=== PATIENT | male | born 2000 | race African-American/Black ===

== ENCOUNTER 2022-07-03 14:32 | Emergency (ER) | payer MEDICAID, SELFPAY ==
[2022-07-03 15:47] VITALS: BP 113/72; PULSE 73; RESP 18; TEMP 37; O2SAT 100; BMI 25.8
[2022-07-03 16:42] LABS: PCR FLU A Negative PCR FLU A (Negative); PCR FLU B Negative PCR FLU B (Negative); PCR RSV Negative PCR RSV (Negative)
[2022-07-03 16:56] LABS: SARS PCR* Negative SARS-CoV-2 (Negative)
--- NOTE | 2022-07-03 18:12 | ED_ITS ---
HPI - General Adult General Chief complaint: Cough Stated complaint: Fever Nausea Congestion Cough Time Seen by Provider: 07/03/22 17:52 Source: patient Mode of arrival: ambulatory Limitations: no limitations History of Present Illness HPI narrative: 22-year-old female presents with a one-week history of sore throat, nasal congestion, mild cough. Has had exposures to influenza, COVID, RSV at work and through family. She reports that her symptoms worsened significantly this morning and she had a fever of 102 at home. She denies body aches. Does report mild headache. She noted some eye swelling yesterday, no eye drainage. She states that the cough is productive of yellow we mucus, denies any dyspnea. Denies a history of asthma. She reports that she has been diagnosed with pneumonia multiple times, last was about 3 years ago. She has been told that there would be some lung damage as a result of this. She denies a history of known chronic lung disease however. She Kem all today but has not tried any cough suppressants or other treatments to help with her symptoms. She denies any severe dyspnea. 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 She also reports a history of depression, PTSD and schizophrenia though she is not currently on medications for this. Her only current long-term medication is a Nexplanon for contraception. 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 ROS is notable for the generalized, HEENT and respiratory symptoms as above, otherwise denies times 12 systems. Related Data Home Medications Medication Instructions Recorded Confirmed etonogestrel subdermal 07/03/22 Previous Rx's Medication Instructions Recorded albuterol sulfate 90 mcg/actuation 2 puff inhalation Q4H PRN 07/03/22 aerosol inhaler shortness of breath or wheezing #8.5 grams levofloxacin 500 mg tablet 500 mg PO DAILY #7 tabs 07/03/22 Allergies Allergy/AdvReac Type Severity Reaction Status Date / Time No Known Drug Allergies Allergy Verified 07/03/22 15:46 Exam Const: Vital Signs, click to edit/add: Vital Signs - 24 hr 07/03/22 15:47 Temperature 98.6 F Pulse Rate [Right Pulse Oximeter] 73 Respiratory Rate 18 Blood Pressure [Ri ght Upper Arm] 113/72 Pulse Oximetry 100 Oxygen Delivery Me thod Room Air Documenting provider has reviewed patient's vital signs: yes General appearance: cooperative, comfortable and well kempt HENMT: Common normals: normocephalic and TM's normal bilaterally Head and scalp: normocephalic Tympanic membrane: TM's normal bilaterally Other: Nose with mild congestion, clear mucus. Oropharynx with mild postnasal drip but moist mucosa, lips are acyanotic with no redness to the pharynx. Eye: Common normals: conjunctivae normal and no scleral icterus Conjunctiva: conjunctiva(e) normal Neck & C-Spine: Common normals: full ROM Other: Mild anterior cervical and submandibular lymphadenopathy with normal range of motion. No meningeal signs Resp: Common normals: normal respiratory effort and no use of accessory muscles Other: Coarse crackles right lateral mid lung field. No wheeze, left side normal. Cardio: Common normals: regular rate, regular rhythm, S1 normal heart sound, S2 normal heart sound, no murmurs and peripheral pulses 2+ throughout Rate: regular rate Rhythm: regular rhythm Heart sounds: S1 normal and S2 normal Peripheral pulses: pulses 2+ throughout Extremity: Common normals: normal to inspection, normal capillary refill and no clubbing, cyanosis or edema Neuro: Speech: speech normal Motor exam: no movement abnormalities noted Psych: Appearance: well kempt Attitude: calm and engaged Insight: insight good Judgement: judgment good Skin: Common normals: no rashes or lesions noted General skin exam: no rashes or lesions noted Course Vital Signs Vital signs: Initial Vital Signs Temperature 98.6 F 07/03/22 15:47 Temperature Source Temporal Artery Scan 07/03/22 15:47 Pulse Rate 73 07/03/22 15:47 Respiratory Rate 18 07/03/22 15:47 Blood Pressure 113/72 07/03/22 15:47 Blood Pressure Mean 85 07/03/22 15:47 Blood Pressure Position Sitting 07/03/22 15:47 Pulse Oximetry 100 07/03/22 15:47 Oxygen Delivery Method 07/03/22 15:47 Vital Signs Temperature 98.6 F 07/03/22 15:47 Pulse Rate 73 07/03/22 15:47 Respiratory Rate 18 07/03/22 15:47 Blood Pressure 113/72 07/03/22 15:47 Pulse Oximetry 100 07/03/22 15:47 Oxygen Delivery Method 07/03/22 15:47 Temperature 98.6 F 07/03/22 15:47 Pulse Rate 73 07/03/22 15:47 Respiratory Rate 18 07/03/22 15:47 Blood Pressure 113/72 07/03/22 15:47 Pulse Oximetry 100 07/03/22 15:47 Oxygen Delivery Method 07/03/22 15:47 Medical Decision Making MDM Narrative Medical decision making narrative: Differential diagnosis includes upper respiratory infection, pneumonia, viral illness, pharyngitis, bronchitis. The of worsening upper respiratory infection now with true fever and physical exam findings consistent with pneumonia reviewed. Swabs are negative, reviewed with patient. Counseled patient that with obvious physical exam findings, I do not recommend a chest x-ray. Vital signs discussed with her. She is in agreement with this. Will begin levofloxacin 500 mg p.o. once daily starting today and continue on for an additional 7 days. I wonder home from work for the next 3 days. Okay to use Tylenol and ibuprofen as needed for fever and comfort. Discussed albuterol and how she has a high chance of some reactive airway disease for the next month, use reviewed in a prescription for albuterol inhalers also provided. No that in this age group we would typically cover for atypicals but with focal exam findings, I am more suspicious that this is a lobar pneumonia which could be quite possible even at her age given her prior history of multiple pneumonias and likely some scarring in that right side. Lab Data Labs: Lab Results 07/03/22 Range/Units 15:49 SARS-CoV-2 (PCR) Negative SARS-CoV-2 (Negative) Influenza Type A (PCR) Negative PCR FLU A (Negative) Influenza Type B (PCR) Negative PCR FLU B (Negative) RSV (PCR) Negative PCR RSV (Negative) Discharge Plan Discharge Clinical Impression: Pneumonia involving right lung Patient Disposition: Home, Self-Care Condition: Stable Instructions: Community Acquired Pneumonia (ED) Additional Instructions: I hear a pneumonia, early, developing on that right side. As we discussed, doi ng a chest x-ray also will not be helpful. I do not hear any wheezing or any signs of severe respiratory distress, this is reassuring. I have given you your 1st dose of antibiotic, levofloxacin. I would like for you to continue on this for another 7 days as well. I would like you off of work for at least the next 2 days. I have given you a work note reflect this. I will also prescribe you an inhaler, as many people as they are recovering from pneumonia tend to get spells of bronchospasm and shortness of breath. Remember that as we discussed, it will take your lungs about a month to heal from the pneumonia completely. If you are still running fevers or feeling especially bad after 5 days of antibiotics, please make a follow-up appointment in the clinic. If you have any very severe shortness of breath, come to the emergency department. As we discussed, your swabs were negative for RSV, influenza or COVID. These are not always perfectly accurate and we could consider repeating these if your symptoms are not improving as expected. Activity Detail: No work for the next 48 hours. Work note given. Discharge Diet: Regular Prescriptions: New levofloxacin 500 mg tablet 500 mg PO DAILY Qty: 7 0RF albuterol sulfate 90 mcg/actuation HFA aerosol inhaler 2 puff inhalation Q4H PRN (Reason: shortness of breath or wheezing) Qty: 8.5 1RF No Action etonogestrel [Nexplanon] subdermal Stand Alone Forms: [employer] Info Instructions
[2022-07-03] MEDS: levoFLOXacin 500 MG TABLET PO (18:23)
[2022-07-03 18:27] VITALS: BP 113/72; PULSE 73; RESP 18; TEMP 37
== END 2022-07-03 18:27 | disposition home or self-care (01) ==
LOC: ED 18:18
PROVIDERS: Emergency Provider Family Medicine
DX: J18.9 Pneumonia, unspecified organism (principal)
CPT/HCPCS: 87502; 87634; 87635; 99282; 99283; 99284; A9270

== ENCOUNTER 2022-07-08 12:43 | Emergency (ER) | payer MEDICAID, SELFPAY ==
[2022-07-08 12:55] VITALS: BP 116/76; PULSE 63; TEMP 36.4; O2SAT 100; BMI 22.0
[2022-07-08 13:47] LABS: PCR FLU A Negative PCR FLU A (Negative); PCR FLU B Negative PCR FLU B (Negative); PCR RSV Negative PCR RSV (Negative)
[2022-07-08 13:54] LABS: SARS PCR* Negative SARS-CoV-2 (Negative)
--- NOTE | 2022-07-08 16:11 | ED_ITS ---
HPI - URI/Sore Throat General Chief Complaint: Cough Stated Complaint: pneumonia getting worse Time Seen by Provider: 07/08/22 15:55 Source: patient Mode of arrival: ambulatory Limitations: no limitations History of Present Illness HPI Narrative: 22-year-old female presents to the emergency department with concerns that her pneumonia is not improving. I evaluated her just a few days ago. Swabs were negative, she was diagnosed with a community-acquired pneumonia was started on levofloxacin and given albuterol. She states that she here today because her cough is not improving. She is still having occasional chest tightness as she was having when I examined her as well. There is no overwhelming fatigue, she is not running any fevers. She feels congested. There is no dyspnea on exertion. She feels mildly short of breath all the time does seem to improve with the albuterol inhaler she was given. She was not noted to be wheezing at the time of our exam. She has had no recent surgeries. She does have a history of community-acquired pneumonia in the past. It was clearly explained to her that she will have a cough for several weeks. The cough is not productive. Her activity is not limited by her dyspnea. There is no hemoptysis. She has no history of DVT nor PE. She has a Nexplanon for contraception. Past medical history is notable for depression. Not currently on prescription medications. She has no allergies. No recent surgeries. 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 Previous note, labs reviewed. ROS notable for the chest, respiratory, HEENT symptoms as described above, otherwise denies times 12 systems. Related Data Home Medications Medication Instructions Recorded Confirmed etonogestrel subdermal 07/03/22 Previous Rx's Medication Instructions Recorded albuterol sulfate 90 mcg/actuation 2 puff inhalation Q4H PRN 07/03/22 aerosol inhaler shortness of breath or wheezing #8.5 grams levofloxacin 500 mg tablet 500 mg PO DAILY #7 tabs 07/03/22 Allergies Allergy/AdvReac Type Severity Reaction Status Date / Time No Known Drug Allergies Allergy Verified 07/03/22 15:46 [facility] Social History Smoking Status: Never smoker Non-prescribed substance use: denies use Exam Const: Vital Signs, click to edit/add: Vital Signs - 24 hr 07/08/22 12:55 Temperature 97.6 F Pulse Rate [Right Pulse Oximeter] 63 Blood Pressure [Ri ght Upper Arm] 116/76 Pulse Oximetry 100 Oxygen Delivery Me thod Room Air Documenting provider has reviewed patient's vital signs: yes Common normals: no apparent distress General appearance: cooperative and well kempt HENMT: Common normals: normocephalic and TM's normal bilaterally Head and scalp: normocephalic Tympanic membrane: TM's normal bilaterally Mouth: oral and palatal mucosa normal Throat: posterior oropharynx normal Other: Nose with very minimal congestion, clear mucus rhinorrhea. Eye: Common normals: conjunctivae normal and no scleral icterus Conjunc tiva: conjunctiva(e) normal Neck & C-Spine: Common normals: full ROM and no lymphadenopathy Resp: Common normals: normal respiratory effort, no use of accessory muscles and clear to auscultation bilaterally Effort & inspection: able to speak in complete sentences Auscultation: clear to auscultation bilaterally Cardio: Common normals: regular rate, regular rhythm, S1 normal heart sound, S2 normal heart sound, no murmurs and peripheral pulses 2+ throughout Rate: regular rate Rhythm: regular rhythm Heart sounds: S1 normal and S2 normal Peripheral pulses: pulses 2+ throughout Extremity: Common normals: normal to inspection Neuro: Speech: speech normal Motor exam: no movement abnormalities noted Psych: Common normals: mental status grossly normal, thought process normal, cooperative and activity/motor behavior normal Appearance: well kempt Thought process: normal thought process Skin: Common normals: no rashes or lesions noted General skin exam: no rashes or lesions noted Course Vital Signs Vital signs: Initial Vital Signs Temperature 97.6 F 07/08/22 12:55 Temperature Source Temporal Artery Scan 07/08/22 12:55 Pulse Rate 63 07/08/22 12:55 Blood Pressure 116/76 07/08/22 12:55 Blood Pressure Mean 89 07/08/22 12:55 Blood Pressure Position Sitting 07/08/22 12:55 Pulse Oximetry 100 07/08/22 12:55 Oxygen Delivery Method 07/08/22 12:55 Vital Signs Temperature 97.6 F 07/08/22 12:55 Pulse Rate 63 07/08/22 12:55 Blood Pressure 116/76 07/08/22 12:55 Pulse Oximetry 100 07/08/22 12:55 Oxygen Delivery Method 07/08/22 12:55 Temperature 97.6 F 07/08/22 12:55 Pulse Rate 63 07/08/22 12:55 Blood Pressure 116/76 07/08/22 12:55 Pulse Oximetry 100 07/08/22 12:55 Oxygen Delivery Method 07/08/22 12:55 MDM - URI/Sore Throat MDM Narrative Medical decision making narrative: Patient speaking in full sentences, not dyspneic. Oxygen saturations normal. Exam is completely improved. There is no fever, hypotension, tachycardia or any other symptoms to suggest clinical worsening. Negative swabs from today are reviewed as well. Offered additional labs and x-ray to further clarify. Patient does not think that these will be necessary after our discussion. Clearly went over timeline and expectations of healing. Went over true alarm symptoms that would warrant repeat evaluation. She assures me that she has a follow-up with her primary care provider in a couple of days. I have urged her to keep that appointment. Lab Data Attestation: I reviewed the patient's lab results. Labs: Lab Results 07/08/22 Range/Units 13:00 SARS-CoV-2 (PCR) Negative SARS-CoV-2 (Negative) Influenza Type A (PCR) Negative PCR FLU A (Negative) Influenza Type B (PCR) Negative PCR FLU B (Negative) RSV (PCR) Negative PCR RSV (Negative) Discharge Plan Discharge Clinical Impression: Pneumonia involving right lung Patient Disposition: Home, Self-Care Condition: Improved Instructions: Community Acquired Pneumonia (DC) Additional Instructions: Your oxygen levels are normal, your respiratory rate is normal. Your fevers have fully resolved. This is great news. There are no signs that your pneumonia is worsening. Actually your lung exam has completely cleared up as well. As we discussed, I do not recommend that we do chest x-ray and blood work today but I did offer to do those if you were concerned. As we discussed, you make sparing some chest tightness for the next couple of weeks and I fully expect her cough persist for up to 6 weeks. Severe shortness of breath, return of fevers over 100.4 and severe weakness would not be expected. Mild fatigue is normal as you continue to heal. Your swabs today were negative for RSV, influenza and COVID. This gives me good confidence that you have not acquired a new infection in the meantime. Please keep your follow-up with her primary care provider as is scheduled and finish her antibiotics as prescribed. You may return to work as normal. Activity Level: No Restrictions Discharge Diet: Regular Prescriptions: No Action etonogestrel [Nexplanon] subdermal levofloxacin 500 mg tablet 500 mg PO DAILY Qty: 7 0RF albuterol sulfate 90 mcg/actuation HFA aerosol inhaler 2 puff inhalation Q4H PRN (Reason: shortness of breath or wheezing) Qty: 8.5 1RF Follow Up/Referrals: Provider,Not a Local [Primary Care Provider] - Stand Alone Forms: [employer] Info Instructions
[2022-07-08 16:19] VITALS: BP 120/72; PULSE 69; RESP 18; O2SAT 97
== END 2022-07-08 16:27 | disposition home or self-care (01) ==
LOC: ED 16:23
PROVIDERS: Emergency Provider Family Medicine
DX: J18.9 Pneumonia, unspecified organism (principal)
CPT/HCPCS: 87502; 87634; 87635; 99282; 99283; 99284

== ENCOUNTER 2022-07-25 11:06 | Emergency (ER) | payer MEDICAID, SELFPAY ==
[2022-07-25 11:15] VITALS: BP 116/77; PULSE 80; RESP 16; TEMP 37; O2SAT 100; BMI 26.6
--- NOTE | 2022-07-25 15:08 | ED.GENADULT ---
HPI - General Adult General Time Seen by Provider: 15:09 Date Seen: 07/25/22 Chief complaint: Unspecified Complaint, Adult Stated complaint: Cough, head/body aches Time Seen by Provider: 07/25/22 15:04 Source: patient Mode of arrival: ambulatory Limitations: no limitations History of Present Illness HPI narrative: Patient is a pleasant 22-year-old female who has influenza a. She presents with cough, headache, chills. She has had a history of pneumonia in the past. Not short of breath currently, O2 sat is 100%, no fever. Related Data Home Medications Medication Instructions Recorded Confirmed etonogestrel subdermal 07/03/22 Previous Rx's Medication Instructions Recorded albuterol sulfate 90 mcg/actuation 2 puff inhalation Q4H PRN 07/03/22 aerosol inhaler shortness of breath or wheezing #8.5 grams levofloxacin 500 mg tablet 500 mg PO DAILY #7 tabs 07/03/22 Allergies Allergy/AdvReac Type Severity Reaction Status Date / Time No Known Drug Allergies Allergy Verified 07/03/22 15:46 Review of Systems Status of ROS: Reports: 6 or more systems reviewed and unremarkable except as noted in History and below [facility] Social History Smoking Status: Current every day smoker Do you use any of these nicotine containing products: Vaping Products Second hand tobacco smoke exposure: Yes Non-prescribed substance use: denies use service: No Exam Narrative: Exam Narrative: Objective vital signs as above In general no apparent distress, does not feel well, no fever O2 sat 100% on room air HEENT unremarkable neck is supple without nodes chest clear pulse regular she is ambulatory without difficulty Const: Vital Signs, click to edit/add: Vital Signs - 24 hr 07/25/22 11:15 Temperature 98.6 F Pulse Rate [Right Pulse Oximeter] 80 Respiratory Rate 16 Blood Pressure [Ri ght Upper Arm] 116/77 Pulse Oximetry 100 Oxygen Delivery Me thod Room Air Course Vital Signs Vital signs: Initial Vital Signs Temperature 98.6 F 07/25/22 11:15 Temperature Source Temporal Artery Scan 07/25/22 11:15 Pulse Rate 80 07/25/22 11:15 Pulse Rhythm 07/25/22 11:15 Respiratory Rate 16 07/25/22 11:15 Blood Pressure 116/77 07/25/22 11:15 Blood Pressure Mean 90 07/25/22 11:15 Blood Pressure Position Sitting 07/25/22 11:15 Pulse Oximetry 100 07/25/22 11:15 Oxygen Delivery Method 07/25/22 11:15 Vital Signs Temperature 98.6 F 07/25/22 11:15 Pulse Rate 80 07/25/22 11:15 Respiratory Rate 16 07/25/22 11:15 Blood Pressure 116/77 07/25/22 11:15 Pulse Oximetry 100 07/25/22 11:15 Oxygen Delivery Method 07/25/22 11:15 Temperature 98.6 F 07/25/22 11:15 Pulse Rate 80 07/25/22 11:15 Respiratory Rate 16 07/25/22 11:15 Blood Pressure 116/77 07/25/22 11:15 Pulse Oximetry 100 07/25/22 11:15 Oxygen Delivery Method 07/25/22 11:15 Medical Decision Making MDM Narrative Medical decision making narrative: Patient's visits significant other has influenza a, patient likely does 2. Rest fluids, observation, off work for few days no written that affect. Follow-up with primary care in the next 2-3 days worsening return to ED as needed. Light activity, Tylenol, Advil or Aleve, cough medicine as needed. Lab Data Labs: Lab Results 07/25/22 Range/Units 14:31 SARS-CoV-2 (PCR) Negative SARS-CoV-2 (Negative) Influenza Type A (PCR) Negative PCR FLU A (Negative) Influenza Type B (PCR) Negative PCR FLU B (Negative) RSV (PCR) Negative PCR RSV (Negative) Discharge Plan Discharge Clinical Impression: Influenza A Patient Disposition: Home w/ Parent or Adult Condition: Stable Additional Instructions: Rest, light activity, Advil or Aleve and Tylenol as needed, fluids, rest, off work for 5 days, recheck with regular doctor in 2-3 days not improving changes concerns worsening, discussed that influenza is likely a week-long illness. Activity Level: Light activity Discharge Diet: Regular Prescriptions: No Action etonogestrel [Nexplanon] subdermal levofloxacin 500 mg tablet 500 mg PO DAILY Qty: 7 0RF albuterol sulfate 90 mcg/actuation HFA aerosol inhaler 2 puff inhalation Q4H PRN (Reason: shortness of breath or wheezing) Qty: 8.5 1RF Follow Up/Referrals: Provider,Not a Local [Primary Care Provider] - Stand Alone Forms: [employer] Info Instructions
[2022-07-25 15:24] LABS: PCR FLU A Negative PCR FLU A (Negative); PCR FLU B Negative PCR FLU B (Negative); PCR RSV Negative PCR RSV (Negative)
[2022-07-25 15:25] LABS: SARS PCR* Negative SARS-CoV-2 (Negative)
== END 2022-07-25 15:19 | disposition home or self-care (01) ==
PROVIDERS: Emergency Provider Family Medicine
DX: J09.X2 Influenza due to identified novel influenza A virus with other respiratory manifestations (principal)
CPT/HCPCS: 87502; 87634; 87635; 99283

== ENCOUNTER 2022-09-26 15:23 | Outpatient (CLI) | payer MEDICAID, SELFPAY ==
[2022-09-27 09:52] LABS: Ferritin* 7.1 ng/mL (17.9-464.0)
== END 2022-09-26 15:24 | disposition home or self-care (01) ==
PROVIDERS: Visit Provider Nurse Practitioner Family
DX: J06.9 Acute upper respiratory infection, unspecified (principal)
CPT/HCPCS: 82728; 87086